=== PATIENT | male | born 1980 | race Caucasian/White ===

== ENCOUNTER → 2017-03-02 | Outpatient (CLI) | payer OTHER ==
--- NOTE | 2017-03-07 17:21 | PCVCIMAG ---
APPROVED REPORT Patient Location: Echo lab Room #: 2 Stress Nurse: Steph Cole RN INDICATIONS: Chest pain The patient exercised according to the [employer] Protocol for13:39 minutes, achieving a maximum work level of 17.5 METS. The resting heart rate of 68 bpm, taniya to a maximal level of 187 bpm. This value represents 101 % of the maximal, age-predicted heart rate. The resting blood pressure of 120/80 mmHg, taniya to a maximum blood pressure of 164/80 mmHg. The exercise was stopped due to fatigue. Conclusion #1 no production of chest pain or angina that precipitated this test #2 no diagnostic EKG changes or significant ectopy #3 excellent exercise tolerance with an appropriate hemodynamic response Impression negative treadmill stress test for ischemia
== END | disposition home or self-care (01) ==
LOC: PCVCIMAG 11:41
PROVIDERS: ATTEND Internal Medicine Cardiovascular Disease
DX: R07.9 Chest pain, unspecified (principal); E78.5 Hyperlipidemia, unspecified
CPT/HCPCS: 80061; 93005; 93017; G0463